=== PATIENT | female | born 1980 | race Caucasian/White ===

== ENCOUNTER 2019-02-14 14:17 | Emergency (ER) | payer OTHER ==
[~2019-02-14] VITALS: Ht 170.2 cm; Wt 104.3 kg
[2019-02-14 14:32] VITALS: Ht 170.2 cm; Wt 104.3 kg
[2019-02-14 15:20] LABS: BASOPHIL % 1.9 % (0-2); PLATELET COUNT 331 x10^3mcL (130-400); RED CELL DISTRIBUTION WIDTH 13.7 % (11.5-14.5)
[2019-02-14 15:30] LABS: CALCIUM 9.2 mg/dL (8.5-10.1); CARBON DIOXIDE 24.9 mmol/L (21-32); CHLORIDE SERUM 105 mmol/L (98-107); CREATININE SERUM 0.9 mg/dL (0.6-1.0); GFR1 > 60 mL/min; GLUCOSE SERUM 127 mg/dL (74-106); POTASSIUM SERUM 3.6 mmol/L (3.5-5.1); SODIUM SERUM 139 mmol/L (136-145)
[2019-02-14 15:35] LABS: ALKALINE PHOSPHATASE 110 U/L (46-116); ALT/SGPT 47 U/L (14-59); AMYLASE 28 U/L (25-115); AST/SGOT 22 U/L (15-37); BILIRUBIN TOTAL 0.4 mg/dL (0.20-1.00); LIPASE 42 IU/L (73-393); TOTAL PROTEIN, SERUM 7.7 g/dL (6.4-8.2)
[2019-02-14 15:38] LABS: ALBUMIN 3.3 g/dL (3.4-5.0)
[2019-02-14 17:29] LABS: UA SPECIFIC GRAVITY >=1.030 (1.005-1.035); microscopic required? YES; urine erythrocyte 3+ (NEGATIVE)
[2019-02-14 19:52] VITALS: BP 120/54
== END 2019-02-14 19:52 | disposition home or self-care (01) ==
LOC: ED 14:17
PROVIDERS: Emergency Medicine
DX: N20.1 Calculus of ureter (principal); N30.91 Cystitis, unspecified with hematuria; Z87.19 Personal history of other diseases of the digestive system; Z98.890 Other specified postprocedural states
CPT/HCPCS: J0696; J2270; J2405; J7030; Q9967